=== PATIENT | male | born 1990 | race Caucasian/White ===

== ENCOUNTER 2024-06-26 17:51 | Emergency (ER) | payer OTHER ==
[~2024-06-26] VITALS: Ht 180.3 cm; Wt 74.8 kg
[~2024-06-26 17:51] MED LIST: AMOCLA875 PO; CEPH500 PO; ONDA4 PO; Percocet 5-3251 EACH PO
[2024-06-26 18:04] VITALS: BP 138/83
== END 2024-06-26 18:45 | disposition left against medical advice (07) ==
LOC: ER 17:51
DX: F32.A Depression, unspecified (principal); Z53.29 Procedure and treatment not carried out because of patient's decision for other reasons
CPT/HCPCS: 99281

== ENCOUNTER 2025-02-08 17:09 | Emergency (ER) | payer OTHER ==
[~2025-02-08] VITALS: Ht 180.3 cm; Wt 74.8 kg
[2025-02-08 17:30] VITALS: BP 110/66
[2025-02-08 18:51] LABS: Source, Urine Voided
[2025-02-08 18:57] LABS: Appearance, Urine Clear (Clear); Bilirubin, Urine Neg (Neg); Blood, Urine Neg (Neg); Color, Urine Yellow (P-Yellow); Glucose Qualitative, Urine Neg (Neg); Ketones, Urine Neg (Neg); Leukocyte Esterase, Urine 2+ (Neg); Nitrite, Urine Neg (Neg); Protein, Urine 1+ (Neg); Urobilinogen, Urine 1+ (Normal); pH, Urine 6.5 (5.0-8.0)
[2025-02-08 19:11] LABS: Mucus Mod (0-Heavy)
[2025-02-08 19:12] LABS: Bacteria Few /hpf; Red Blood Cells, Urine 0-2 /hpf (0-2); Squamous Epithelial Cells Rare /hpf (Few)
[2025-02-08] MEDS ORDERED: Ketorolac Tromethamine 30mg Vial IM ONE (19:35)
[2025-02-08 20:38] LABS: Chlamydia Trachomatis Urine NOT DETECTED (NOT DETECT); Neisseria Gonorrhoea Urine NOT DETECTED (NOT DETECT)
[2025-02-08] MEDS ORDERED: DOXYCYCLINE HY100 M1 PO (20:45)
[2025-02-08] MEDS ORDERED: IBUP800 PO (20:45)
== END 2025-02-08 20:55 | disposition home or self-care (01) ==
LOC: ER 17:09
PROVIDERS: Emergency Medicine
DX: N45.1 Epididymitis (principal); Z88.2 Allergy status to sulfonamides; Z79.2 Long term (current) use of antibiotics
CPT/HCPCS: 76870; 81001; 87077; 87086; 87186; 87491; 87591; 96372; 99284-25; J0696; J1885

== ENCOUNTER 2025-04-19 19:17 | Emergency (ER) | payer OTHER ==
[~2025-04-19] VITALS: Ht 180.3 cm; Wt 72.6 kg
[~2025-04-19 19:17] MED LIST changes: +DOXYCYCLINE HY100 M1 PO; +IBUP800 PO
[2025-04-19 19:45] VITALS: BP 121/72
[2025-04-19 20:10] LABS: Source, Urine Clean Catch
[2025-04-19 20:19] LABS: Appearance, Urine Hazy (Clear); Bilirubin, Urine Neg (Neg); Blood, Urine 3+ (Neg); Color, Urine Yellow (P-Yellow); Glucose Qualitative, Urine Neg (Neg); Ketones, Urine Neg (Neg); Leukocyte Esterase, Urine 3+ (Neg); Nitrite, Urine Neg (Neg); Protein, Urine 2+ (Neg); Specific Gravity, Urine 1.025 (1.003-1.022); Urobilinogen, Urine NORM (Normal)
[2025-04-19 20:34] LABS: Bacteria Many /hpf; Red Blood Cells, Urine 0-2 /hpf (0-2); Squamous Epithelial Cells Mod /hpf (Few); White Blood Cells, Urine TNTC /hpf (0-5)
[2025-04-19] MEDS ORDERED: CefTRIAXone 500 MG Vial IM ONE (22:05)
[2025-04-19] MEDS ORDERED: IBU600 MG PO (22:07)
[2025-04-19] MEDS ORDERED: Vibramycin100 MG PO (22:07)
[2025-04-19] MEDS ORDERED: Doxycycline Hyclate 100 MG TAB PO ONE (22:10)
[2025-04-22 01:28] LABS: APTIMA MEDIA TYPE Unisex Swab; C. TRACHOMATIS BY TMA Negative (Negative); N. GONORRHOEAE BY TMA Negative (Negative); SPECIMEN SOURCE Not Provided; T. VAGINALIS BY TMA Negative (Negative)
== END 2025-04-19 23:11 | disposition home or self-care (01) ==
LOC: ER 19:17
PROVIDERS: Emergency Medicine; Student in an Organized Health Care Education/Training Program
DX: N45.1 Epididymitis (principal); Z88.2 Allergy status to sulfonamides
CPT/HCPCS: 76870; 81001; 87086; 87491; 87591; 87661; 96372; 99284-25; A9270; J0696